=== PATIENT | male | born 1950 | race Caucasian/White ===

== ENCOUNTER → 2017-08-06 | Outpatient (CLI) | payer MEDICARE, BC | END | disposition home or self-care (01) | LOC: CFH 08:53 | PROVIDERS: ATTEND Nurse Practitioner | DX: I71.4 Abdominal aortic aneurysm, without rupture (principal); Z87.891 Personal history of nicotine dependence | CPT/HCPCS: 93978 ==

== ENCOUNTER → 2018-03-19 | Outpatient (CLI) | payer MEDICARE, BC | END | disposition home or self-care (01) | LOC: CFH 08:56 | PROVIDERS: ATTEND Family Medicine | DX: G31.9 Degenerative disease of nervous system, unspecified (principal); G93.89 Other specified disorders of brain; H53.2 Diplopia | CPT/HCPCS: 70551 ==

== ENCOUNTER → 2018-04-15 | Outpatient (CLI) | payer MEDICARE, BC ==
[~2018-04-15] MED LIST: GADOBUTROL 10 MMOL/10 ML PFS ONE
== END | disposition home or self-care (01) ==
LOC: CFH 07:33
PROVIDERS: ATTEND Family Medicine
DX: R90.89 Other abnormal findings on diagnostic imaging of central nervous system (principal)
CPT/HCPCS: 70553; A9585

== ENCOUNTER 2018-11-06 12:55 | Inpatient (IN) | payer MEDICARE, BC ==
[~2018-11-06] VITALS: Ht 180.3 cm; Wt 81.0 kg
[~2018-11-06 12:55] MED LIST changes: +ATOR10TA9 PO; +CITA20TA9 PO; -GADOBUTROL 10 MMOL/10 ML PFS ONE; +LOSA50TA14 PO
--- NOTE | 2018-11-06 13:39 | NUR ---
CONTACT WITH PT, 68 YR OLD MALE HERE WITH C/O "I GOT A PACE MAKER 10/21, I HAD IT CHECKED ON THURSDAY, IT WAS WORKING FINE. I WAS TOLD I HAVE A HEART BLOCK. SHE SET THE PACEMAKER TO RUN NEEDED. MY BLOOD PRESSURE HAS BEEN UP. SAW DR ACEVEDO. DR FRASER SAID TO DOUBLE UP ON MY BP MED. DR ACEVEDO PRESCRIBED HCTZ. MY BP JUST DROPPED TO THE FLOOR, GETTING LIGHTHEADED" DR PAT AT BEDSIDE TO TASHA PT
[2018-11-06] MEDS ORDERED: ASPIRIN 325 MG TABLET ONE (13:54)
[2018-11-06] MEDS ORDERED: ASPIRIN 325 MG TABLET PO ONE (14:00)
[2018-11-06] MEDS ORDERED: HYDR25TA6 PO (14:06)
[2018-11-06 14:11] LABS: BASOPHILS # (AUTO) 0.05 x10^3/uL (0-0.1); BASOPHILS % (AUTO) 1 % (0-1); EOSINOPHILS # (AUTO) 0.11 x10^3/uL (0-0.4); EOSINOPHILS % (AUTO) 1 % (1-7); LYMPHOCYTES # (AUTO) 1.86 x10^3/uL (1-3.4); LYMPHOCYTES % (AUTO) 24 % (22-44); MD NO; MEAN CORPUSCULAR HEMOGLOBIN 27.4 pg (27.5-34.5); MEAN CORPUSCULAR HGB CONC 32.6 g/dL (33.2-36.2); MEAN PLATELET VOLUME 7.9 fL (7.4-10.4); MONOCYTES # (AUTO) 0.89 x10^3/uL (0.2-0.8); MONOCYTES % (AUTO) 11 % (2-9); NEUTROPHILS # (AUTO) 4.88 x10^3/uL (1.8-6.8); NEUTROPHILS % (AUTO) 63 % (42-75); PLATELET COUNT 356 x10^3/uL (130-400); RED CELL DISTRIBUTION WIDTH 16.5 % (9.4-14.8)
[2018-11-06 14:15] LABS: ALANINE AMINOTRANSFERASE 31 U/L (12-78); ALBUMIN 3.9 g/dL (3.4-5.0); ANION GAP 6 mmol/L (5-15); CALCIUM 9.8 mg/dL (8.5-10.1); CHLORIDE 108 mmol/L (98-107)
[2018-11-06 14:19] LABS: ALKALINE PHOSPHATASE 123 U/L (45-117); BILIRUBIN,TOTAL 0.5 mg/dL (0.2-1.0); TOTAL PROTEIN 7.8 g/dL (6.4-8.2)
[2018-11-06 14:23] LABS: TROPONIN I 0.153 ng/mL (0.000-0.045)
[2018-11-06] MEDS ORDERED: SODIUM CHLORIDE 0.9% 1,000ML IVBOLUS ONE (15:00)
[2018-11-06] MEDS ORDERED: HEPARIN 5,000 UNITS/ML, 1ML ONE (15:17)
[2018-11-06] MEDS ORDERED: HEPARIN 25,000 UNITS/500ML PMX 500 ML ONE (15:17)
--- NOTE | 2018-11-06 15:29 | NUR ---
DR PAT AT BEDSIDE TO RE-EVAL PT. PT CONT PACCED RHYTHM. PT DENIES CP AT THIS TIME. PT WITH C/O RIGHT ARM/SHOULDER PAIN THAT BEGAN TODAY.
[2018-11-06] MEDS ORDERED: HEPARIN 5,000 UNITS/ML, 1ML IV PRN (15:30)
[2018-11-06] MEDS ORDERED: HEPARIN 5,000 UNITS/ML, 1ML IV ONE (15:30)
[2018-11-06] MEDS ORDERED: HEPARIN 25,000 UNITS/500ML PMX 500 ML IV PRN (15:30)
--- NOTE | 2018-11-06 15:56 | NUR ---
REPORT CALLED TO JOSE NAPIER, POC DISCUSSED.
[2018-11-06] MEDS ORDERED: ACETAMINOPHEN 325 MG TABLET PO PRN (16:00)
[2018-11-06] MEDS ORDERED: ONDANSETRON 2MG/ML, 2ML IVPush PRN (16:00)
[2018-11-06] MEDS ORDERED: morphine SULFATE 10 MG/ML, 1ML IVPush PRN (16:00)
[2018-11-06] MEDS ORDERED: LABETALOL 20 MG/4 ML IVPush PRN (16:00)
[2018-11-06] MEDS ORDERED: CYCLOBENZAPRINE 10 MG TABLET PO PRN (16:00)
[2018-11-06] MEDS ORDERED: NITROGLYCERIN 0.4 MG BOTTLE (25 TABS) SL PRN (16:00)
[2018-11-06 16:33] LABS: TROPONIN I 0.144 ng/mL (0.000-0.045)
[2018-11-06 17:00] VITALS: BP 132/79
[2018-11-06] MEDS: SODIUM CHLORIDE 0.9% 1,000 ML IV SCH (17:42)
[2018-11-06 20:00] VITALS: BP 132/67
[2018-11-06] MEDS ORDERED: ATORVASTATIN 80 MG TABLET PO SCH (21:00)
[2018-11-06 21:06] VITALS: BP 148/88
[2018-11-06 22:07] VITALS: BP 150/74
[2018-11-06 22:08] VITALS: BP 127/81
[2018-11-06 22:09] VITALS: BP 142/89
[2018-11-06 22:53] LABS: TROPONIN I 0.157 ng/mL (0.000-0.045)
[2018-11-07 03:06] VITALS: BP 150/82
[2018-11-07] MEDS: SODIUM CHLORIDE 0.9% 1,000 ML IV SCH (04:09)
[2018-11-07 05:33] LABS: BASOPHILS # (AUTO) 0.04 x10^3/uL (0-0.1); BASOPHILS % (AUTO) 1 % (0-1); EOSINOPHILS # (AUTO) 0.15 x10^3/uL (0-0.4); EOSINOPHILS % (AUTO) 2 % (1-7); LYMPHOCYTES # (AUTO) 2.48 x10^3/uL (1-3.4); LYMPHOCYTES % (AUTO) 34 % (22-44); MD NO; MEAN CORPUSCULAR HEMOGLOBIN 27.1 pg (27.5-34.5); MEAN CORPUSCULAR VOLUME 84.7 fL (81-97); MEAN PLATELET VOLUME 7.9 fL (7.4-10.4); MONOCYTES # (AUTO) 0.81 x10^3/uL (0.2-0.8); MONOCYTES % (AUTO) 11 % (2-9); NEUTROPHILS # (AUTO) 3.75 x10^3/uL (1.8-6.8); NEUTROPHILS % (AUTO) 52 % (42-75); PLATELET COUNT 294 x10^3/uL (130-400); RED BLOOD COUNT 4.76 x10^6/uL (4.38-5.82); RED CELL DISTRIBUTION WIDTH 16.5 % (9.4-14.8)
[2018-11-07 05:41] LABS: CHLORIDE 113 mmol/L (98-107)
[2018-11-07 05:53] LABS: ALANINE AMINOTRANSFERASE 24 U/L (12-78); ALBUMIN 3.4 g/dL (3.4-5.0); ALKALINE PHOSPHATASE 99 U/L (45-117); ANION GAP 5 mmol/L (5-15); BILIRUBIN,TOTAL 0.7 mg/dL (0.2-1.0); CALCIUM 8.9 mg/dL (8.5-10.1); CHOL/HDL RATIO 2.3; CHOLESTEROL, TOTAL 108 mg/dL (140-239); CREATININE 0.77 mg/dL (0.7-1.3); HDL CHOL % 44 % (26-37); HDL CHOLESTEROL (DIRECT) 47 mg/dL (40-60); LDL CHOLESTEROL,CALCULATED 50 mg/dL (54-169); LDL/HDL RATIO 1.1 (0.5-3.0); TOTAL PROTEIN 6.5 g/dL (6.4-8.2); TRIGLYCERIDES 55 mg/dL (50-200); TROPONIN I 0.151 ng/mL (0.000-0.045); VLDL CHOLESTEROL 11 mg/dL (0-25)
[2018-11-07] MEDS ORDERED: ASPIRIN 325 MG TABLET EC PO SCH (06:00)
[2018-11-07 08:02] VITALS: BP 156/94
[2018-11-07 08:04] VITALS: BP 150/91
[2018-11-07 08:06] VITALS: BP 162/101
[2018-11-07] MEDS ORDERED: METOPROLOL SUCCINATE 25 MG TAB.ER.24H PO SCH (08:30)
[2018-11-07] MEDS ORDERED: LOSARTAN 50MG TABLET PO SCH (09:00)
[2018-11-07] MEDS ORDERED: CITALOPRAM 20 MG TABLET PO SCH (09:00)
[2018-11-07] MEDS ORDERED: METO25TA91 PO (10:21)
[2018-11-07] MEDS ORDERED: ATORVASTATIN 10 MG TABLET PO SCH (21:00)
== END 2018-11-07 13:14 | disposition home or self-care (01) | DRG 74 ==
LOC: ED 14:55 → EDIP 15:10 → 5SO 16:42
PROVIDERS: ADMIT Hospitalist; ATTEND Hospitalist
PROC: 4B02XSZ Measurement of Cardiac Pacemaker, External Approach (ICD-10-PCS; principal; 2018-11-06)
DX: G90.8 Other disorders of autonomic nervous system (principal); I95.2 Hypotension due to drugs; E78.5 Hyperlipidemia, unspecified; E86.0 Dehydration; I10 Essential (primary) hypertension; I71.2 Thoracic aortic aneurysm, without rupture; F32.9 Major depressive disorder, single episode, unspecified; F41.9 Anxiety disorder, unspecified; R07.89 Other chest pain; R73.9 Hyperglycemia, unspecified; T50.2X5A Adverse effect of carbonic-anhydrase inhibitors, benzothiadiazides and other diuretics, initial encounter; I25.2 Old myocardial infarction; Z90.49 Acquired absence of other specified parts of digestive tract; Z95.0 Presence of cardiac pacemaker; Z87.891 Personal history of nicotine dependence; Y92.89 Other specified places as the place of occurrence of the external cause
CPT/HCPCS: 36415; 71046; 80053; 80061; 83735; 84443; 84484; 85025; 85520; 93005; 96361; 96365; 99291; G0378; J1644; J7030

== ENCOUNTER → 2018-12-01 | Outpatient (CLI) | payer MEDICARE, BC ==
[~2018-12-01] MED LIST changes: +GADOBUTROL 7.5 MMOL/7.5 ML PFS ONE; +HYDR25TA6 PO; +METO25TA91 PO
== END | disposition home or self-care (01) ==
LOC: RAD 08:57 → EDSTATUS 09:00
PROVIDERS: ATTEND Psychiatry & Neurology Neurology
DX: R90.89 Other abnormal findings on diagnostic imaging of central nervous system (principal)
CPT/HCPCS: 70553; A9585

== ENCOUNTER 2019-03-03 14:05 | Inpatient (IN) | payer MEDICARE, BC ==
[~2019-03-03] VITALS: Ht 180.3 cm; Wt 76.1 kg
[2019-03-18 12:31] VITALS: BP 168/98
== END 2019-03-18 16:00 | disposition hospice, home (50) | DRG 40 ==
LOC: ED 14:49 → EDIP 17:53 → 4WST 18:48 → 3NW 03-09 16:08 → CCU 03-16 21:43 → 3NW 03-18 11:03
PROVIDERS: ADMIT Family Medicine; ATTEND Internal Medicine
PROC: 30233K1 Transfusion of Nonautologous Frozen Plasma into Peripheral Vein, Percutaneous Approach (ICD-10-PCS; 2019-03-11)
PROC: 06H03DZ Insertion of Intraluminal Device into Inferior Vena Cava, Percutaneous Approach (ICD-10-PCS; principal; 2019-03-12)
DX: C71.1 Malignant neoplasm of frontal lobe (principal); I61.3 Nontraumatic intracerebral hemorrhage in brain stem; G93.41 Metabolic encephalopathy; I82.412 Acute embolism and thrombosis of left femoral vein; D68.69 Other thrombophilia; I44.2 Atrioventricular block, complete; I50.32 Chronic diastolic (congestive) heart failure; I82.432 Acute embolism and thrombosis of left popliteal vein; G81.94 Hemiplegia, unspecified affecting left nondominant side; Z91.013 Allergy to seafood; D63.8 Anemia in other chronic diseases classified elsewhere; D72.829 Elevated white blood cell count, unspecified; E78.5 Hyperlipidemia, unspecified; F17.200 Nicotine dependence, unspecified, uncomplicated; F41.1 Generalized anxiety disorder; I11.0 Hypertensive heart disease with heart failure; I25.2 Old myocardial infarction; K62.89 Other specified diseases of anus and rectum; R13.10 Dysphagia, unspecified; T38.0X5A Adverse effect of glucocorticoids and synthetic analogues, initial encounter; Y92.89 Other specified places as the place of occurrence of the external cause; Z80.42 Family history of malignant neoplasm of prostate; Z95.0 Presence of cardiac pacemaker; Z95.828 Presence of other vascular implants and grafts; Z66 Do not resuscitate
CPT/HCPCS: 36415; 37191; 70450; 70553; 77280; 77295; 77300; 77334; 77412; 77470; 80048; 80053; 81003; 82040; 82962; 83735; 83930; 85025; 85520; 85610; 86850; 86900; 87081; 99156; 99157; A9585; C1880; C1894; G0378; J1100; J1644; J1650; J1953; J2250; J2405; J3010; J3430; Q0162; C1769; J1940; J2150; J2310; P9017